=== PATIENT | female | born 1990 | race Caucasian/White ===

== ENCOUNTER 2018-05-21 14:56 | Emergency (ER) | payer OTHER ==
[2018-05-21 15:02] VITALS: BP 105/67; PULSE 64; TEMP 98.7; BMI 24.2
[2018-05-21] MEDS ORDERED: ACETAMINOPHEN 325 MG TABLET (FP) PO ONE (16:14)
[2018-05-21] MEDS ORDERED: ACETAMINOPHEN 325 MG TABLET (FP) ONE (16:23)
--- NOTE | 2018-05-21 16:26 | PDOC ---
History of Present Illness - General Chief Complaint: Vaginal Bleeding Stated Complaint: 6WKS /VAGINAL BLEEDING Time Seen by Provider: 05/21/18 15:55 History Source: Patient - History of Present Illness Initial Comments: 05/21/18 16:22 Patient is 28F here today complaining of vaginal bleeding for the past 5 days. She was seen in the ED on Wednesday for vaginal bleeding, found to be 6 weeks by TVUS, but no pole was identified. Beta hcg testing on showed that the was still viable. Patient endorses passing clot and has picture that appears to be tissue. Denies dysuria, fever, chills, nausea, vomiting, chest pain and shortness of breath. Past History - Past Medical History Allergies/Adverse Reactions: Allergies Allergy/AdvReac Type Severity Reaction Status Date / Time No Known Allergies Allergy Verified 05/21/18 15:02 Home Medications: Ambulatory Orders Vitamins (Sjr) - 1 tab PO DAILY #1 tablet 12/16/12 Asthma: No Cancer: No Cardiac Disorders: No COPD: No DVT: No Diabetes: No HTN: No Seizures: No Thyroid Disease: No - Reproductive History (#): 2 Para: 2 Cervical CA: No Dysfunctional Uterine Bleeding: No Ectopic : No Endometrial CA: No Polycystic Ovaries: No Tubal Ligation: No - Suicide/Smoking/Psychosocial Hx Smoking Status: No Smoking History: Never smoked Have you smoked in the past 12 months: No Number of Cigarettes Smoked Daily: 0 Hx Alcohol Use: No Drug/Substance Use Hx: No Substance Use Type: None Hx Substance Use Treatment: No Review of Systems - Review of Systems Comments:: 05/21/18 16:25 GENERAL/CONSTITUTIONAL: No fever or chills. No weakness. HEAD, EYES, EARS, NOSE AND THROAT: No change in vision. No sore throat. CARDIOVASCULAR: No chest pain or shortness of breath RESPIRATORY: No cough, wheezing, or hemoptysis. GASTROINTESTINAL: No nausea, vomiting, diarrhea or constipation. GENITOURINARY: No dysuria, frequency, or change in urination. MUSCULOSKELETAL: No joint or muscle swelling or pain. No neck or back pain. SKIN: No rash NEUROLOGIC: No headache, vertigo, loss of consciousness, or change in strength/ sensation. ENDOCRINE: No increased thirst. No abnormal weight change HEMATOLOGIC/LYMPHATIC: No anemia, easy bleeding, or history of blood clots. ALLERGIC/IMMUNOLOGIC: No hives or skin allergy. *Physical Exam - Vital Signs Last Vital Signs Temp Pulse Resp BP Pulse Ox 98.7 F 64 18 105/67 99 05/21/18 15:00 05/21/18 15:00 05/21/18 15:00 05/21/18 15:00 05/21/18 15:00 - Physical Exam Comments: 05/21/18 16:25 GENERAL: Awake, alert, and fully oriented, in no acute distress HEAD: No signs of trauma, normocephalic, atraumatic EYES: PERRLA, EOMI, sclera anicteric, conjunctiva clear ENT: Auricles normal inspection, hearing grossly normal, nares patent, oropharynx clear without exudates. Moist mucosa NECK: Normal ROM, supple, no lymphadenopathy, JVD, or masses LUNGS: No distress, speaks full sentences, clear to auscultation bilaterally HEART: Regular rate and rhythm, normal S1 and S2, no murmurs, rubs or gallops, peripheral pulses normal and equal bilaterally. ABDOMEN: Soft, +suprapubic tenderness, normoactive bowel sounds. No guarding, no rebound. No masses EXTREMITIES: Normal inspection, Normal range of motion, no edema. No clubbing or cyanosis. NEUROLOGICAL: Cranial nerves II through XII grossly intact. Normal speech, normal gait, no focal sensorimotor deficits SKIN: Warm, Dry, normal turgor, no rashes or lesions noted. : Normal external genitalia, blood coming from os, moderate amount in vaginal vault. ED Treatment Course - LABORATORY CBC & Chemistry Diagram: 05/21/18 16:30 - RADIOLOGY Radiology Studies Ordered: Category Date Time Status TRANSVAGINAL US PREG [US] Stat Ultrasound 05/21/18 16:14 Ordered Medical Decision Making - Medical Decision Making 05/21/18 16:41 Patient 28F here today with likely spontaneous . Vital signs normal and stable. Will evaluate with with basic labs, ua, tvus. 05/21/18 18:20 Laboratory Tests 05/21/18 05/21/18 05/21/18 16:30 16:30 16:30 WBC 10.5 H Hgb 14.2 Plt Count 277 Beta HCG, Quant 272.9 Urine Blood 3+ H CBC normal, beta quant dropped, TVUS shows no . UA negative for infection, dirty sample. Patient advised of results. Discharged home with return precautions and instructions to follow up with her OBGYN. *DC/Admit/Observation/Transfer Diagnosis at time of Disposition: Spontaneous miscarriage - Discharge Dispostion Disposition: HOME Condition at time of disposition: Good Decision to Admit order: No - Referrals Referrals: Ruth Lee MD [Primary Care Provider] - - Patient Instructions Printed Discharge Instructions: DI for Miscarriage Additional Instructions: Por favor, regrese al departamento de emergencias si tiene algn sntoma nuevo, que empeore o que est relacionado con los sntomas Por favor, adrian un seguimiento con puente mdico OBGYN la prxima semana. Print Language: SAMI - Post Discharge Activity
[2018-05-21 16:36] LABS: BASO % 0.3 % (0-2.0); EOS % 2.6 % (0-4.5); HEMATOCRIT 41.4 % (32.4-45.2); HEMOGLOBIN 14.2 GM/dL (10.7-15.3); LYMPH % 16.6 % (8-40); MCH 31.3 pg (25.7-33.7); MCHC 34.4 g/dl (32.0-36.0); MEAN PLT VOLUME 8.8 fl (7.5-11.1); MONO % 5.1 % (3.8-10.2); NEUT % 75.4 % (42.8-82.8); PLATELET COUNT 277 K/MM3 (134-434); RBC 4.55 M/mm3 (3.60-5.2); RDW 13.3 % (11.6-15.6); WHITE BLOOD COUNT 10.5 K/mm3 (4.0-10.0)
[2018-05-21 16:49] LABS: URINE APPEARANCE SLCLOUDY; URINE BILIRUBIN NEGATIVE (<2.0 mg/dL); URINE COLOR LTYELLOW; URINE GLUCOSE (UA) NEGATIVE (NEGATIVE); URINE KETONE NEGATIVE (NEGATIVE); URINE LEUK ESTERASE TRACE (NEGATIVE); URINE NITRITE NEGATIVE (NEGATIVE); URINE PROTEIN NEGATIVE (NEGATIVE); URINE UROBILINOGEN NEGATIVE mg/dL (0.2-1.0)
[2018-05-21 16:50] LABS: INR 1.2 (0.83-1.09); PROTHROMBIN TIME (PATIENT) 13.6 SEC (9.7-13.0)
[2018-05-21 16:59] LABS: EPI CELLS RARE /HPF (FEW); URINE BACTERIA RARE /hpf (NONE SEEN); URINE MUCUS RARE
--- NOTE | 2018-05-21 18:37 | PDOC ---
Attending Attestation - ED Attending Attestation I have performed the following: I have examined & evaluated the patient, The case was reviewed & discussed with the resident, I agree w/resident's findings & plan, Exceptions are as noted - HPI HPI: 05/21/18 18:32 does not feel lightheaded no nausea nBe careful in writing 28-year-old female currently 7 weeks by LMP dates here today for concerns for vaginal bleeding. She was seen a few days ago and was confirmed to have an IUP however since that time she has had persistent bleeding and cramping - Physicial Exam PE: 05/21/18 18:35 Awake alert no acute distress lungs are clear bilaterally heart is regular for any murmurs rubs or gallops abdomen is soft nontender extremities are warm and well-perfused skin is warm and dry A&O 3 - Medical Decision Making 05/21/18 18:36 Differential diagnosis includes threatened AB versus complete or incomplete AB versus demise. Plan transvaginal ultrasound labs patient is known to be O + blood type The ultrasound shows no fetus in the uterus patient has likely had a complete miscarriage will DC home with follow-up with Velma Lee her intern retail
== END 2018-05-21 19:11 | disposition home or self-care (01) ==
LOC: JER 14:56
DX: O03.9 Complete or unspecified spontaneous abortion without complication (principal); Z3A.01 Less than 8 weeks gestation of pregnancy
CPT/HCPCS: 36415; 76817-TC; 81003; 81015; 84702; 85025; 85610; 86850; 86900; 86901; 99283-25

== ENCOUNTER 2018-12-25 17:46 | Emergency (ER) | payer MEDICARE, OTHER ==
[2018-12-25 17:51] VITALS: BP 110/73; PULSE 76; TEMP 99.2; BMI 25.4
--- NOTE | 2018-12-25 18:29 | PDOC ---
History of Present Illness - General Chief Complaint: Urinary Problem Stated Complaint: VAGINAL BLEEDING Time Seen by Provider: 12/25/18 17:58 History Source: Patient Past History - Travel Traveled outside of the country in the last 30 days: No Close contact w/someone who was outside of country & ill: No - Past Medical History Allergies/Adverse Reactions: Allergies Allergy/AdvReac Type Severity Reaction Status Date / Time No Known Allergies Allergy Verified 12/25/18 17:51 Home Medications: Ambulatory Orders Ibuprofen 600 mg PO Q6H #30 tablet 12/25/18 Ondansetron [Zofran Odt -] 4 mg SL TID #10 od.tablet 12/25/18 Phenazopyridine HCl [Pyridium -] 100 mg PO TID #12 tablet 12/25/18 Sulfamethoxazole/Trimethoprim [Bactrim Ds -] 1 tab PO BID #24 tablet 12/25/18 Asthma: No Cancer: No Cardiac Disorders: No COPD: No DVT: No Diabetes: No HTN: No Seizures: No Thyroid Disease: No - Reproductive History (#): 2 Para: 2 Cervical CA: No Dysfunctional Uterine Bleeding: No Ectopic : No Endometrial CA: No Polycystic Ovaries: No Therapeutic (s) & number: No Tubal Ligation: No Spontaneous : 0 - Suicide/Smoking/Psychosocial Hx Smoking Status: No Smoking History: Never smoked Have you smoked in the past 12 months: No Number of Cigarettes Smoked Daily: 0 Hx Alcohol Use: No Drug/Substance Use Hx: No Substance Use Type: None Hx Substance Use Treatment: No Review of Systems - Review of Systems Able to Perform ROS?: Yes Comments:: 12/25/18 18:29 CONSTITUTIONAL: Absent: fever, chills, diaphoresis, generalized weakness, malaise, loss of appetite GASTROINTESTINAL: Present: nausea Absent: abdominal pain, abdominal distension, vomiting, diarrhea , constipation, melena, hematochezia GENITOURINARY: Present : dysuria, frequency, urgency, hematuria Absent flank pain, genital pain MUSCULOSKELETAL: Absent: myalgia, arthralgia, joint swelling SKIN: Absent: rash, itching, pallor NEUROLOGIC: Absent: headache, focal weakness or paresthesias, dizziness, unsteady gait, seizure, mental status changes, bladder or bowel incontinence Is the patient limited Sami proficient: No *Physical Exam - Vital Signs Last Vital Signs Temp Pulse Resp BP Pulse Ox 99.2 F 76 18 110/73 99 12/25/18 17:48 12/25/18 17:48 12/25/18 17:48 12/25/18 17:48 12/25/18 17:48 - Physical Exam Comments: 12/25/18 18:29 GENERAL: Well developed, well nourished. Awake and alert. No acute distress. ABDOMINAL: Suprapubic discomfort. Soft. Non-tender. Non-distended. No rebound or guarding. No organomegaly. Normoactive bowel sounds. MUSCULOSKELETAL Normal range of motion at all joints. No bony deformities or tenderness. No CVA tenderness. EXTREMITIES: No cyanosis. No clubbing. No edema. No calf tenderness. SKIN: Warm and dry. Normal capillary refill. No rashes. No jaundice. NEUROLOGICAL: Alert, awake, appropriate. Cranial nerves 2-12 intact. No deficits to light touch and temperature in face, upper extremities and lower extremities. No motor deficits in the in face, upper extremities and lower extremities. Normoreflexic in the upper and lower extremities. Normal speech. Toes are down- going bilaterally. Gait is normal without ataxia. Medical Decision Making - Medical Decision Making 12/25/18 19:21 The patient is a 28-year-old female with no past medical history who presents to the emergency department today with burning on urination for the past 4 days. Patient states that she also noticed blood in her urine the last 2 days. She also admits to nausea and lower abdominal pain. Denies back pain, fevers, chills, body aches, vomiting, diarrhea and constipation. A/P: Suprapubic tenderness, dysuria UA/UC collected 3+ leukocytes; over 2000 white blood cells, over thousand red blood cells. Given nausea; will treat as an early pyelo Bactrim and peridium sent the patient pharmacy. Patient to f/u primary care. Discharge home I discussed the physical exam findings, ancillary test results and final diagnoses with the patient. I answered all of the patient's questions. The patient was satisfied with the care received and felt comfortable with the discharge plan and treatment plan. The Patient agrees to follow up with the primary care physician/specialist within 24-72 hours. Return precautions were given. *DC/Admit/Observation/Transfer Diagnosis at time of Disposition: UTI (urinary tract infection) Qualifiers: Urinary tract infection type: acute cystitis Hematuria presence: with hematuria Qualified Code(s): N30.01 - Acute cystitis with hematuria - Discharge Dispostion Disposition: HOME Condition at time of disposition: Stable Decision to Admit order: No - Prescriptions Prescriptions: Ibuprofen 600 mg PO Q6H #30 tablet Ondansetron [Zofran Odt -] 4 mg SL TID #10 od.tablet Phenazopyridine HCl [Pyridium -] 100 mg PO TID #12 tablet Sulfamethoxazole/Trimethoprim [Bactrim Ds -] 1 tab PO BID #24 tablet - Referrals Referrals: Boris Spaulding MD [Staff Physician] - - Patient Instructions Printed Discharge Instructions: DI for Urinary Tract Infection (UTI) Additional Instructions: You have a urinary tract infection. This caused by bacteria. Please drink plenty of fluids. Take your antibiotics as prescribed (Bactrim twice a day for 2 weeks). Finish the entire dose even if you feel better. Take the pyridium with food to help with the pain on urination at meal time You may take Motrin as directed for pain Please follow up with your primary care doctor this week. Return to the emergency department if you have fevers, chills, nausea, vomiting , back pain, or have any changes in your symptoms. Tiene anam infeccin del tracto urinario. Mcrae es causado por las bacterias. Por favor, kary muchos lquidos. [place] pita antibiticos segn lo prescrito (Bactrim dos veces al da virgie 2 semanas). Termine la dosis completa incluso si se siente mejor. [place] el piridium con alimentos para aliviar el dolor al orinar a la hora de la comida. Puede moody Motrin justine se lo indique para el dolor. Por favor adrian un seguimiento con puente mdico de atencin primaria esta semana. Regrese a la dc de emergencias si tiene fiebre, escalofros, nuseas, vmitos , dolor de espalda o si tiene algn cambio en pita sntomas. Print Language: ARGENTINE - Post Discharge Activity Forms/Work/School Notes: Back to Work
[2018-12-25 18:54] LABS: EPI CELLS 2.5 /HPF (0-5); HCG,QUALITATIVE URINE Negative; URINE APPEARANCE TURBID; URINE BACTERIA 482.2 /hpf (NEGATIVE); URINE BILIRUBIN NEGATIVE (NEGATIVE); URINE CASTS 70 /hpf (0-8); URINE COLOR ORANGE; URINE GLUCOSE (UA) NEGATIVE (NEGATIVE); URINE KETONE TRACE (NEGATIVE); URINE LEUK ESTERASE 3+ (NEGATIVE); URINE NITRITE NEGATIVE (NEGATIVE); URINE PROTEIN 3+ (NEGATIVE); URINE RBC 2213 /hpf (0-4); URINE WBC 2697 /hpf (0-5)
[2018-12-25] MEDS ORDERED: IBUPROFEN 600 MG TABLET (FP) PO ONE ×2 (19:15→19:19)
[2018-12-25] MEDS ORDERED: ONDANSETRON *ODT* 4 MG TABLET SL ONE (19:15)
[2018-12-25] MEDS ORDERED: ONDANSETRON *ODT* 4 MG TABLET ONE (19:19)
== END 2018-12-25 19:50 | disposition home or self-care (01) ==
LOC: JERFT 17:46
DX: N30.01 Acute cystitis with hematuria (principal)
CPT/HCPCS: 81003; 84703; 87086; 87186; 99281-25; Q0162

== ENCOUNTER 2020-04-08 07:38 | Inpatient (IN) | payer OTHER ==
[~2020-04-08 07:38] MED LIST: ceFAZolin SODIUM 1 GM VIAL IVPB ONE
[2020-04-08] MEDS ORDERED: SUCCINYLCHOLINE CHLORIDE 200 MG/10 ML SYRINGE ONE (08:14)
[2020-04-08] MEDS ORDERED: morphine SULFATE/PF 0.5 MG/ML (2cc Syringe - QUVA) ONE (08:14)
[2020-04-08] MEDS ORDERED: PROPOFOL 20 ML ONE (08:14)
[2020-04-08] MEDS ORDERED: KETOROLAC TROMETHAMINE 30 MG/1 ML VIAL ONE (08:17)
[2020-04-08] MEDS ORDERED: PHENYLEPHRINE HCL 10 MG/1 ML SINGLE DOSE VIAL ONE (08:17)
[2020-04-08 08:23] VITALS: BMI 28.1
[2020-04-08] MEDS ORDERED: CITRIC ACID/SODIUM CITRATE 30 ML UNIT-DOSE CUP PO ONE (08:54)
[2020-04-08] MEDS ORDERED: ELECTROLYTE-148 SOLN 500 ML IV ONE (08:54)
--- NOTE | 2020-04-08 08:58 | HP ---
Past Medical History - Admission Chief Complaint: Scheduled RLTCS History of Present Illness: 30yo @ 39wks by gaston here for scheduled RLTCS, now declining BTL No VB/LOF. No ctx. 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: Alzheimer's, CVA, Dementia, Migraine, Multiple Sclerosis, Peripheral N europathy, Parkinson's, Seizure, Syncope, TIA, Vertigo, Other Cardiovascular: No: AFIB, Aneurysm, Aortic Insufficiency, Aortic Stenosis, CAD, CHF, Deep Vein Thrombosis, HTN, Hyperlipdemia, [place], Mitral Insufficiency, Mitral Stenosis, Murmur, Pulmonary Hypertension, Other Pulmonary: No: Asthma, Bronchitis, Cancer, COPD, O2 Dependent, Pneumonia, Previo usly Intubated, Pulmonary Embolus, Pulmonary Fibrosis, Sleep Apnea, Other Gastrointestinal: No: Ascites, Cancer, Constipation, Crohn's Disease, Diverticulitis, Diverticulosis, Esophageal Varices, Gastritis, GERD, GI Bleed, Hemorrhoids, Hiatal Hernia, Inflamatory Bowel Disease, Irritable Bowel Disease, Pancreatitis, Peptic Ulcer Disease, Ulcerative Colitis, Other ...: 5 ...Para: 2 ...Term: 2 ...: 0 ...Spon : 2 ...Induced : 0 ...Living Children: 0 ...Multiple Gestation: 0 ...LMP: 07/01/19 ... Weeks Gestation by Dates: 40.2 ...EDC by Dates: 04/06/20 ...EDC by Sono: 04/15/20 Heme/Onc: Yes: Anemia Infectious Disease: No: AIDS, C-Diff, Herpes Zoster, HIV, MRSA, STD's, Tuberculosis, VREF, Other Psych: No: Addictions, Anxiety, Bipolar, Depression, Panic, Psychosis, Sc hizophrenia, Other Musculoskeletal: No: Bursitis, Chronic low back pain, Hemiparesis, Hemiplegia, Osteoarthritis, Paraplegia, Other Rheumatology: No: Fibromyalgia, Gout, Lupus, Rheumatoid Arthritis, Sarcoidosis, Vasculitis, Other ENT: No: Allergic Rhinitis, Sinusitis, Other - Past Surgical History Past Surgical History: Yes: Hx Myomectomy: No Hx Transabdominal Cerclage: No - Smoking History Smoking history: Never smoked Have you smoked in the past 12 months: No Aproximately how many cigarettes per day: 0 - Alcohol/Substance Use Hx Alcohol Use: No History of Substance Use: reports: None - Social History Usual Living Arrangement: Yes: With Spouse Do you think of yourself as: Straight/Heterosexual ADL: Independent History of Recent Travel: No Home Medications - Allergies Allergies/Adverse Reactions: Allergies Allergy/AdvReac Type Severity Reaction Status Date / Time No Known Allergies Allergy Verified 12/25/18 17:51 - Home Medications Home Medications: Ambulatory Orders Ibuprofen 600 mg PO Q6H #30 tablet 12/25/18 Ondansetron [Zofran Odt -] 4 mg SL TID #10 od.tablet 12/25/18 Phenazopyridine HCl [Pyridium -] 100 mg PO TID #12 tablet 12/25/18 Sulfamethoxazole/Trimethoprim [Bactrim Ds -] 1 tab PO BID #24 tablet 12/25/18 Physical Exam - Maternity Vital Signs: Vital Signs Temperature 98.8 F 04/08/20 08:11 Pulse Rate 81 04/08/20 08:11 Respiratory Rate 17 04/08/20 08:11 Blood Pressure 119/81 04/08/20 08:11 O2 Sat by Pulse Oximetry (%) - Abdominal Exam/OB Number of Fetuses: Single Presentation: Vertex Contractions: No Monitor Mode: External Heart Rate Location: [facility] Category: I Accelerations: Non-Uniform Decelerations: None - Vaginal Exam/OB Vaginal Bleeding: No - Physical Exam Edema: No Imaging - Results Ultrasound: Report Reviewed Assessment/Plan 30yo @ 39wks here for scheduled RLTCS Admit to L&D NPO, IVFs Cat I tracing Risks reviewed; consents signed. Proceed to OR Kenya Feliciano MD
[2020-04-08] MEDS ORDERED: ELECTROLYTE-148 SOLN 1,000 ML IV SCH (09:00)
[2020-04-08] MEDS ORDERED: morphine SULFATE/PF 0.5 MG/ML (2cc Syringe - QUVA) EP ONE (09:40)
[2020-04-08] MEDS ORDERED: ceFAZolin SODIUM 1 GM VIAL IVPB ONE (09:53)
[2020-04-08] MEDS ORDERED: OXYTOCIN 10 UNITS/ML VIAL ONE (09:59)
--- NOTE | 2020-04-08 10:38 | OP ---
Operative Note - Note: Operative Date: 04/08/20 Operation: Repeat Low Transverse Findings: VMI, LOT, nuchal x 1, no meconium. Weight pending. Apgars 8/9. Normal tubes and ovaries bilaterally Post-Operative Diagnosis: Same as Pre-op Surgeon: Chely Feliciano Roofing Superintendent: Rajesh Shannon Anesthesia: Spinal Estimated Blood Loss (mls): 600 Drains, Volume Out (mls): 500 (clear urine) Operative Report Dictated: Yes
[2020-04-08] MEDS ORDERED: oxyCODONE HCL 5 MG TABLET PO PRN (10:40)
[2020-04-08] MEDS ORDERED: METHYLERGONOVINE MALEATE 0.2 MG/1 ML AMP IM PRN (10:40)
[2020-04-08] MEDS ORDERED: BENZOCAINE 28 GM HEMORRHOIDAL OINTMENT TP PRN (10:40)
[2020-04-08] MEDS ORDERED: WITCH HAZEL 50% (TUCKS) 40 PAD/JAR PAD TP PRN (10:40)
[2020-04-08] MEDS ORDERED: BENZOCAINE 20% 57 GM BOTTLE TP PRN (10:40)
[2020-04-08] MEDS ORDERED: ONDANSETRON 4 MG/2 ML VIAL IVPUSH PRN ×2 (10:48)
[2020-04-08] MEDS ORDERED: ACETAMINOPHEN 1000 MG/100 ML VIAL (NON FORMULARY) IVPB ONE (10:50)
[2020-04-08] MEDS ORDERED: LACTATED RINGERS SOLUTION 1,000 ML IV SCH (11:00)
[2020-04-08 11:23] VITALS: O2SAT 100
[2020-04-08] MEDS ORDERED: ACETAMINOPHEN INJECTION 100 ML IVPB ONE (12:28)
[2020-04-08] MEDS: OXYTOCIN 20 UNITS in 0.9% NS 20 UNIT/1,000 ML INFUS.BAG IV SCH ×2 (12:40→22:30)
[2020-04-08] MEDS: IBUPROFEN 800 MG/8 ML IJ IVPB PRN (16:32)
[2020-04-08] MEDS: FERROUS SO4 325 MG TABLET (FP) PO SCH (22:00)
[2020-04-09] MEDS: IBUPROFEN 800 MG/8 ML IJ IVPB PRN (01:25)
--- NOTE | 2020-04-09 07:56 | PN ---
Post Progress Note - Subjective Subjective: ambulating, tolerated PO, lochia decreased, passing flatus, breast and bottle feeding Post Day: 1 Type of Delivery: Repeat C/S Vital Signs: Vital Signs Temperature 98.1 F 04/09/20 06:00 Pulse Rate 78 04/09/20 06:00 Respiratory Rate 18 04/09/20 06:00 Blood Pressure 97/59 L 04/09/20 06:00 O2 Sat by Pulse Oximetry (%) 100 04/09/20 06:00 Breast Exam: Yes: Other Uterus: Yes: Fundus Firm Incision: Yes: Sutures intact Abdomen/GI: Yes: Abdomen soft Lochia, amount: Moderate Extremities: Yes: Calves non-tender Perineum: Yes: Intact Activity: Ambulating Assessment/Plan POD # 1 in stable condition, doing well -AM CBC -Continue PP/post-op care -Anticipate D/C home on POD # 2-3
[2020-04-09 08:04] LABS: BASO % 0.4 % (0-2.0); EOS % 0.7 % (0-4.5); HEMATOCRIT 27.4 % (32.4-45.2); HEMOGLOBIN 8.6 GM/dL (10.7-15.3); LYMPH % 12.8 % (8-40); MCH 25.3 pg (25.7-33.7); MCHC 31.4 g/dl (32.0-36.0); MEAN CELL VOLUME 80.5 fl (80-96); MEAN PLT VOLUME 8.8 fl (7.5-11.1); MONO % 5.6 % (3.8-10.2); NEUT % 80.5 % (42.8-82.8); PLATELET COUNT 213 K/MM3 (134-434); RDW 15.5 % (11.6-15.6); WHITE BLOOD COUNT 12.6 K/mm3 (4.0-10.0)
[2020-04-09] MEDS: FERROUS SO4 325 MG TABLET (FP) PO SCH ×2 (09:58→21:52)
[2020-04-09] MEDS: PRENATAL VITAMINS W/ FOLIC ACID TABLET (FP) PO SCH (09:58)
[2020-04-09] MEDS ORDERED: DIPHTH,PERTUSS(ACELL),TET 0.5 ML DISP.SYRIN IM ONE (10:00)
--- NOTE | 2020-04-09 10:14 | PN ---
Progress Note (short form) - Note Progress Note: Anesthesia Post op/pain Pt seen and examined S:Alert and awake comfortable O: Vital Signs Temperature 98.5 F 04/09/20 09:00 Pulse Rate 68 04/09/20 09:00 Respiratory Rate 18 04/09/20 09:00 Blood Pressure 97/67 04/09/20 09:00 O2 Sat by Pulse Oximetry (%) 100 04/09/20 06:00 CBC, BMP 04/09/20 07:50 A/P s/p c section Doing well post op Continue current care. Max Robles MD
[2020-04-09] MEDS ORDERED: BISACODYL 10 MG SUPP.RECT RC PRN (10:40)
[2020-04-09] MEDS: SIMETHICONE 80 MG TAB.CHEW (FP) PO PRN ×2 (13:13→21:51)
[2020-04-09] MEDS: IBUPROFEN 600 MG TABLET (FP) PO PRN ×2 (13:13→21:51)
--- NOTE | 2020-04-09 17:51 | OP ---
DATE OF OPERATION: 04/08/2020 PREOPERATIVE DIAGNOSIS: A 39-week , 2 prior sections. Desires repeat section. POSTOPERATIVE DIAGNOSIS: A 39-week , 2 prior sections. Desires repeat section. PROCEDURE: Repeat low transverse section. SURGEON: Chely Feliciano MD. SEALS ENGRAVER: DAVID Carrera. ANESTHESIA: Spinal. INTRAVENOUS FLUIDS: Per anesthesia record. ESTIMATED BLOOD LOSS: 600. URINE OUTPUT: 500 mL of clear urine at the end of the procedure. FINDINGS: Viable male infant, LOT presentation, nuchal x1, no meconium, Apgars 8 and 9, weight pending, normal tubes and ovaries bilaterally. COMPLICATIONS: None. CONDITION: Stable to recovery room. DESCRIPTION OF PROCEDURE: After appropriate consents were signed, patient was taken to the operating room. Spinal anesthesia was administered. Sterile Munoz catheter was inserted in the operating room. The abdomen was prepped and draped in the normal sterile fashion. Timeout was performed confirming correct patient and procedure. A Pfannenstiel incision was then made through the previous incision and carried through to the underlying layers until the fascia was nicked in the midline. Fascia was then extended laterally with the Vargas scissors. The inferior aspect of the fascia was grasped with a Leslie clamp, tented upwards, and the rectus muscles dissected off bluntly and with Vargas scissors. Attention was then paid to the superior aspect which was taken down in a similar fashion. The rectus muscles were in the midline with the scalpel. The peritoneum was then entered bluntly. Bladder blade was inserted. There were filmy adhesions on the patient's lower uterine segment, had to be taken down to accommodate the bladder flap. This was done with the Metzenbaum. Bladder flap was then created with the Metzenbaum digitally. Bladder blade was readjusted. The uterus was incised in a low transverse fashion. Clear amniotic fluid was noted. The infant's head was delivered without difficulty as were the remaining shoulders and body. A nuchal was reduced upon delivery of the infant's body. The cord was clamped and cut, the was handed off to the waiting NICU staff. The uterus was then removed manually. The uterus was exteriorized and cleared of all clot and debris. The hysterotomy was closed in one layer with 1-0 Vicryl. An area of the patient's left hysterotomy had to be reapproximated with an additional 1-0 Vicryl to achieve hemostasis. The gutters were cleared of all clot and debris. The uterus was then returned to the abdominal cavity. The hysterotomy was reexamined and noted to be hemostatic. The muscles were then reapproximated with 2-0 chromic. The fascia was closed with 0 Vicryl. Skin was then closed with 3-0 Biosyn. The bandages were applied. Sponge, lap, needle count was correct x3. Patient did receive Ancef at the start of the procedure. She was taken from the operating room to the recovery area in stable condition. MD BEN MARTIN/[id number]
[2020-04-10 09:00] VITALS: BP 98/67; PULSE 75; TEMP 98.8
[2020-04-10] MEDS: FERROUS SO4 325 MG TABLET (FP) PO SCH (09:51)
[2020-04-10] MEDS: PRENATAL VITAMINS W/ FOLIC ACID TABLET (FP) PO SCH (09:51)
--- NOTE | 2020-04-10 10:07 | DS ---
Physical Exam-SCOUT LEASER Vital Signs: Vital Signs Temperature 98.8 F 04/10/20 08:55 Pulse Rate 75 04/10/20 08:55 Respiratory Rate 20 04/10/20 08:55 Blood Pressure 98/67 04/10/20 08:55 O2 Sat by Pulse Oximetry (%) 100 04/09/20 06:00 Constitutional: Yes: Well Nourished, Other (pain scale 5/10) Eyes: Yes: WNL HENT: Yes: WNL Neck: Yes: WNL Cardiovascular: Yes: WNL Respiratory: Yes: WNL Gastrointestinal: Yes: WNL, Normal Bowel Sounds, Soft, Other (bm done , tolerating food well). No: Distention Renal/: Yes: WNL, Other (voiding without difficulty). No: CVA Tenderness - Left, CVA Tenderness - Right ....Post : Yes: Uterus firm, Uterus non-tender, Moderate lochia rubra Breast(s): Yes: WNL (Bf) Musculoskeletal: Yes: WNL Extremities: Yes: WNL. No: Calf Tenderness Edema: LLE: Trace, RLE: Trace Wound/Incision: Yes: Clean/Dry, Well Approximated, Sutures Intact (intradermal sutre), Steri Strips, Open to air. No: Draining, Reddened, Bleeding, Excoriated Neurological: Yes: WNL, Alert, Oriented ...Motor Strength: WNL Psychiatric: Yes: WNL, Alert, Oriented Labs: CBC, BMP 04/09/20 07:50 Delivery - Delivery Type of Anesthesia: Spinal EBL (cc): 600 Delivery, Single - Stages of Labor Date of Delivery: 04/08/20 Time of Delivery: 10:01 Time Placenta Delivered: 10:02 - Condition of Manager Chemical/Phlebotomy Services Technician Present: Yes Name: Rocio Chaney Infant Gender: Male Weight: 7 lb 5 oz Position: Left, OT Total Hours ROM (Hrs/Mins): 0Hrs/2Mins - 1 Minute Total Score: 8 5 Minutes Total Score: 8 - [place] Feeding Plan Initial Plan: Exclusive throughout hospitalization Remarks - Remarks Remarks: stable po c/s #2 day requests discharge today Discharge Summary Problems reviewed: Yes Reason For Visit: C SECTION Condition: Stable - Instructions Diet, Activity, Other Instructions: Regular Diet Follow up in one week for an incision check Referrals: Chely Feliciano MD [Staff Physician] - Disposition: HOME - Home Medications Comprehensive Discharge Medication List: Ambulatory Orders Ibuprofen 600 mg PO Q6H #30 tablet 12/25/18 Ondansetron [Zofran Odt -] 4 mg SL TID #10 od.tablet 12/25/18 Phenazopyridine HCl [Pyridium -] 100 mg PO TID #12 tablet 12/25/18 Sulfamethoxazole/Trimethoprim [Bactrim Ds -] 1 tab PO BID #24 tablet 12/25/18 Breast Pump 1 each MC 5XD 30 Days #1 each 04/08/20 Ferrous Sulfate [Feosol] 325 mg PO DAILY #30 tablet 04/08/20 Ibuprofen 600 mg PO Q6H PRN #30 tablet 04/08/20 Oxycodone HCl/Acetaminophen [Percocet 5-325 mg Tablet -] 1 - 2 tab PO Q6H PRN #20 tab MDD 4 04/08/20
--- NOTE | 2020-04-11 18:46 | PATH ---
Surgical Pathology Report Patient Name: OPAL LAUREANO Med. Rec. #: [id number] /Age/Gender: 1990 (Age: 30) / F Account: [id number] Location: [facility] OBS/[employer] INS[employer] Taken: 04/08/2020 Received: 04/08/2020 Reported: 04/11/2020 Physicians: Chely Feliciano Specimen(s) Received PLACENTA Clinical History Final Diagnosis PLACENTA, SECTION: 515 G THIRD TRIMESTER PLACENTA WITH TRIVASCULAR UMBILICAL CORD AND UNREMARKABLE PLACENTAL MEMBRANES. Electronically Signed Yeni Maldonado M.D. Gross Description The specimen is received fresh labeled placenta and is a 515 gram, 18.0 x 17.5 x 2.7 cm. placenta with attached membranes and umbilical cord. The attached membranes are kenney, translucent with focal opacities and insert marginally. The umbilical cord measures 27 cm. in length and averages 1.2 cm. in diameter. The cord inserts eccentrically, 6 cm. to the nearest margin. No true knots or strictures are identified. Cut surface of the umbilical cord reveals 3 vessels. The surface is gonzalez-blue with minimal fibrin deposition and appropriate caliber vessels. The maternal surface is red-brown with focal defects. Sectioning reveals red-brown, spongy parenchyma. No lesions are identified. [employer] sections are submitted in three cassettes as follows: 1- membrane rolls and umbilical cord; 2-3- full thickness sections of placenta. /04/10/2020 saudi/04/10/2020
== END 2020-04-10 10:55 | disposition home or self-care (01) | DRG 540 ==
LOC: JLDR 07:38 → J3W 12:18
PROVIDERS: ADMIT Obstetrics & Gynecology; ATTEND Obstetrics & Gynecology
PROC: 10D00Z1 Extraction of Products of Conception, Low, Open Approach (ICD-10-PCS; principal; 2020-04-08 08:00)
DX: O82 Encounter for cesarean delivery without indication (principal); O34.211 Maternal care for low transverse scar from previous cesarean delivery; O69.81X0 Labor and delivery complicated by cord around neck, without compression, not applicable or unspecified; Z3A.39 39 weeks gestation of pregnancy; Z37.0 Single live birth
CPT/HCPCS: 36415; 85025; 88307-TC; 90715; 94760; J0131

== ENCOUNTER 2021-04-04 13:37 | Emergency (ER) | payer OTHER ==
[2021-04-04 14:13] VITALS: TEMP 98.3; BMI 30.2
[2021-04-04 16:14] LABS: EPI CELLS 9 /uL (0-25.1); HYALINE CASTS 0 /uL (0-3.1); PH,URINE 7.5 (5.0-8.0); URINE APPEARANCE CLEAR; URINE BACTERIA 24 /uL (0-1359); URINE BILIRUBIN NEGATIVE (NEGATIVE); URINE COLOR YELLOW; URINE GLUCOSE (UA) NEGATIVE (NEGATIVE); URINE KETONE TRACE (NEGATIVE); URINE LEUK ESTERASE TRACE (NEGATIVE); URINE NITRITE NEGATIVE (NEGATIVE); URINE PROTEIN NEGATIVE (NEGATIVE); URINE RBC 6 /uL (0-23.9); URINE UROBILINOGEN 0.2 mg/dL (0.2-1.0); URINE WBC 13 /uL (0-25.8)
[2021-04-04] MEDS ORDERED: KETOROLAC TROMETHAMINE 60 MG/2 ML VIAL IM ONE (16:26)
[2021-04-04 16:30] LABS: HCG,QUALITATIVE URINE Negative
[2021-04-04] MEDS ORDERED: KETOROLAC TROMETHAMINE 60 MG/2 ML VIAL ONE (16:44)
[2021-04-04 17:28] LABS: BASO % 0.3 % (0-2.0); EOS % 0.3 % (0-4.5); LYMPH % 8.6 % (8-40); MCH 28.1 pg (25.7-33.7); MCHC 33.3 g/dl (32.0-36.0); MEAN CELL VOLUME 84.4 fl (80-96); MEAN PLT VOLUME 8.8 fl (7.5-11.1); MONO % 6.2 % (3.8-10.2); NEUT % 84.6 % (42.8-82.8); PLATELET COUNT 232 10^3/uL (134-434); RBC 4.62 M/mm3 (3.60-5.2); RDW 14.9 % (11.6-15.6); WHITE BLOOD COUNT 8.2 K/mm3 (4.0-10.0)
[2021-04-04 17:47] LABS: CHLORIDE 107 mmol/L (98-107); SODIUM 140 mmol/L (136-145)
[2021-04-04 17:50] LABS: ANION GAP 8 MMOL/L (8-16); CO2 24 mmol/L (21-32); GLUCOSE,RANDOM 76 mg/dL (74-106); LIPASE 67 U/L (73-393)
[2021-04-04 17:52] LABS: CREATININE 0.5 mg/dL (0.55-1.3)
[2021-04-04 17:53] LABS: SGOT/AST 21 U/L (15-37); SGPT/ALT 21 U/L (13-61)
[2021-04-04 17:54] LABS: BILIRUBIN,TOTAL 0.5 mg/dL (0.2-1)
[2021-04-04 17:55] LABS: ALK PHOS 106 U/L (45-117)
[2021-04-04 18:09] LABS: BLOOD UREA NITROGEN 2.3 mg/dL (7-18)
[2021-04-04] MEDS ORDERED: DOXYCYCLINE HYCLATE 100 MG CAPSULE PO ONE (18:46)
[2021-04-04] MEDS ORDERED: cefTRIAXone SODIUM 1 GM VIAL ONE (18:54)
[2021-04-04 19:59] VITALS: BP 123/72; PULSE 88
== END 2021-04-04 19:11 | disposition home or self-care (01) ==
LOC: JER 13:37
DX: R10.2 Pelvic and perineal pain (principal)
CPT/HCPCS: 36415; 76830-TC; 76856-TC; 80053; 81003; 83690; 84703; 85025; 87086; 87491; 87591; 99284-25

== ENCOUNTER 2022-01-18 14:15 | Emergency (ER) | payer OTHER ==
[2022-01-18 14:22] VITALS: BMI 25.2
[2022-01-18] MEDS ORDERED: ONDANSETRON *ODT* 4 MG TABLET SL ONE (16:10)
[2022-01-18] MEDS ORDERED: ONDANSETRON *ODT* 4 MG TABLET ONE (16:15)
[2022-01-18 19:18] VITALS: TEMP 98
== END 2022-01-18 19:21 | disposition home or self-care (01) ==
LOC: JER 14:15
DX: B34.9 Viral infection, unspecified (principal)
CPT/HCPCS: 87804; 99283-25; C9803-CS; Q0162; U0003; U0005

== ENCOUNTER 2022-08-08 01:07 | Emergency (ER) | payer OTHER ==
[2022-08-08 01:19] VITALS: BMI 27.8
[2022-08-08 04:35] VITALS: BP 111/71; PULSE 79; RESP 20; TEMP 97.7
== END 2022-08-08 04:30 | disposition home or self-care (01) ==
LOC: JER 01:07
DX: B37.31 Acute candidiasis of vulva and vagina (principal)
CPT/HCPCS: 99283-25

== ENCOUNTER 2022-11-30 05:55 | Inpatient (IN) | payer OTHER ==
[2022-11-30] MEDS ORDERED: ELECTROLYTE-148 SOLN 500 ML IV ONE (06:00)
[2022-11-30] MEDS ORDERED: CITRIC ACID/SODIUM CITRATE 30 ML UNIT-DOSE CUP PO ONE (06:00)
[2022-11-30] MEDS ORDERED: ELECTROLYTE-148 SOLN 1,000 ML IV SCH ×2 (06:30→08:15)
[2022-11-30 06:35] VITALS: BMI 30.9
[2022-11-30] MEDS ORDERED: OXYTOCIN 30 UNITS in 0.9% NS 30 UNIT/500 ML INFUS.BAG IVPB ONE (07:44)
[2022-11-30] MEDS ORDERED: ONDANSETRON 4 MG/2 ML VIAL ONE (07:45)
[2022-11-30] MEDS ORDERED: ceFAZolin SODIUM 1 GM VIAL ONE (07:45)
[2022-11-30] MEDS ORDERED: morphine SULFATE/PF 1 MG/2 ML (2cc Syringe - QUVA) ONE (07:45)
[2022-11-30] MEDS ORDERED: FENTANYL CITRATE/PF 50 MCG/ML VIAL ONE (07:45)
[2022-11-30] MEDS ORDERED: KETOROLAC TROMETHAMINE 30 MG/1 ML VIAL ONE (07:45)
[2022-11-30] MEDS ORDERED: PHENYLEPHRINE HCL 10 MG/1 ML SINGLE DOSE VIAL ONE (07:45)
[2022-11-30] MEDS ORDERED: ePHEDrine SULFATE 50 MG/1 ML AMPULE ONE (07:45)
[2022-11-30] MEDS ORDERED: SODIUM CHLORIDE 0.9% P/F 10 ML VIAL IJ ONE (07:45)
[2022-11-30] MEDS ORDERED: SUCCINYLCHOLINE CHLORIDE 200 MG/10 ML SYRINGE ONE (07:45)
[2022-11-30] MEDS ORDERED: METHYLERGONOVINE MALEATE 0.2 MG/1 ML AMP IM PRN (09:06)
[2022-11-30] MEDS ORDERED: ACETAMINOPHEN 325 MG TABLET (FP) PO PRN (09:06)
[2022-11-30] MEDS ORDERED: ONDANSETRON 4 MG/2 ML VIAL IVPUSH PRN (09:11)
[2022-11-30] MEDS ORDERED: ACETAMINOPHEN 1000 MG/100 ML BAG IVPB PRN (09:12)
[2022-11-30] MEDS ORDERED: OXYTOCIN 20 UNITS in 0.9% NS 20 UNIT/1,000 ML INFUS.BAG IV ONE (09:33)
[2022-11-30] MEDS: OXYTOCIN 20 UNITS in 0.9% NS 20 UNIT/1,000 ML INFUS.BAG IV SCH ×2 (09:38→18:37)
[2022-11-30] MEDS: IBUPROFEN 800 MG/8 ML IJ IVPB PRN ×2 (13:02→22:07)
[2022-11-30] MEDS ORDERED: oxyCODONE HCL 5 MG TABLET PO PRN (21:06)
[2022-12-01 07:34] LABS: BASO % 0.4 % (0-2.0); EOS % 1.9 % (0-4.5); HEMATOCRIT 29.3 % (32.4-45.2); HEMOGLOBIN 9.5 GM/dL (10.7-15.3); LYMPH % 15.3 % (8-40); MCH 26.1 pg (25.7-33.7); MCHC 32.5 g/dl (32.0-36.0); MEAN CELL VOLUME 80.4 fl (80-96); MEAN PLT VOLUME 8.6 fl (7.5-11.1); MONO % 6.1 % (3.8-10.2); NEUT % 76.3 % (42.8-82.8); PLATELET COUNT 184 10^3/uL (134-434); RBC 3.65 M/mm3 (3.60-5.2); RDW 26.7 % (11.6-15.6); WHITE BLOOD COUNT 9.2 K/mm3 (4.0-10.0)
[2022-12-01] MEDS: IBUPROFEN 600 MG TABLET (FP) PO PRN ×2 (08:57→17:37)
[2022-12-01] MEDS ORDERED: BISACODYL 10 MG SUPP.RECT RC PRN (09:06)
[2022-12-01] MEDS ORDERED: DIPHTH,PERTUSS(ACELL),TET 0.5 ML DISP.SYRIN IM ONE (10:00)
[2022-12-01] MEDS ORDERED: FLU VACC QS2022-23(6MOS UP)/PF 60 MCG/0.5 ML SYRINGE IM ONE (10:00)
[2022-12-01 13:07] LABS: ANISOCYTOSIS 2+; MACROCYTOSIS 0; OVALOCYTE 2+; TEAR DROP CELLS 1+
[2022-12-01 14:47] VITALS: RESP 18
[2022-12-01] MEDS: SIMETHICONE 80 MG TAB.CHEW (FP) PO PRN (17:37)
[2022-12-01] MEDS: OXYTOCIN 20 UNITS in 0.9% NS 20 UNIT/1,000 ML INFUS.BAG IV SCH (20:07)
[2022-12-02] MEDS: IBUPROFEN 600 MG TABLET (FP) PO PRN (09:43)
[2022-12-02] MEDS: SIMETHICONE 80 MG TAB.CHEW (FP) PO PRN (09:43)
[2022-12-03] MEDS: IBUPROFEN 600 MG TABLET (FP) PO PRN ×2 (00:02→10:22)
[2022-12-03] MEDS: SIMETHICONE 80 MG TAB.CHEW (FP) PO PRN ×2 (00:02→10:22)
[2022-12-03 08:11] LABS: BASO % 0.8 % (0-2.0); EOS % 3.7 % (0-4.5); HEMATOCRIT 28.4 % (32.4-45.2); LYMPH % 16.4 % (8-40); MCH 25.5 pg (25.7-33.7); MCHC 31.7 g/dl (32.0-36.0); MEAN CELL VOLUME 80.4 fl (80-96); MEAN PLT VOLUME 8.6 fl (7.5-11.1); MONO % 7.3 % (3.8-10.2); NEUT % 71.8 % (42.8-82.8); PLATELET COUNT 197 10^3/uL (134-434); RBC 3.54 M/mm3 (3.60-5.2); RDW 26.4 % (11.6-15.6); WHITE BLOOD COUNT 7.1 K/mm3 (4.0-10.0)
[2022-12-03 10:05] VITALS: BP 110/75; PULSE 72; TEMP 98.2
== END 2022-12-03 12:10 | disposition home or self-care (01) | DRG 540 ==
LOC: JLDR 05:55 → J3W 10:40
PROVIDERS: ADMIT Obstetrics & Gynecology; ATTEND Obstetrics & Gynecology
PROC: 10D00Z1 Extraction of Products of Conception, Low, Open Approach (ICD-10-PCS; principal; 2022-11-30)
PROC: 0UL70ZZ Occlusion of Bilateral Fallopian Tubes, Open Approach (ICD-10-PCS; 2022-11-30)
DX: O34.211 Maternal care for low transverse scar from previous cesarean delivery (principal); Z30.2 Encounter for sterilization; Z3A.39 39 weeks gestation of pregnancy; Z37.0 Single live birth
CPT/HCPCS: 36415; 80053; 85025; 85610; 86780; 86850; 86900; 86901; 88302-TC; 88307-TC; 90715; 94010; C9803-CS; G0008; Q2036; U0003; U0005